=== PATIENT | female | born 1990 | race Caucasian/White ===

== ENCOUNTER 2022-05-26 12:39 | Day surgery (SDC) | payer BC ==
[2022-05-06 15:36] VITALS: BMI 25.0
[2022-05-26 13:16] VITALS: RESP 18
[2022-05-26 14:31] VITALS: BP 98/66; PULSE 60; TEMP 97.8
== END 2022-05-26 14:25 | disposition home or self-care (01) ==
LOC: FASU-ENDO 12:39
PROVIDERS: ATTEND Internal Medicine Gastroenterology
PROC: 0DBL8ZX Excision of Transverse Colon, Via Natural or Artificial Opening Endoscopic, Diagnostic (ICD-10-PCS; 2022-05-26)
PROC: 0DBM8ZX Excision of Descending Colon, Via Natural or Artificial Opening Endoscopic, Diagnostic (ICD-10-PCS; 2022-05-26)
PROC: 0DBK8ZX Excision of Ascending Colon, Via Natural or Artificial Opening Endoscopic, Diagnostic (ICD-10-PCS; principal; 2022-05-26 13:40)
DX: K92.1 Melena (principal); K64.1 Second degree hemorrhoids; K63.89 Other specified diseases of intestine
CPT/HCPCS: 81025; 88305-TC